=== PATIENT | male | born 1995 | race African-American/Black ===

== ENCOUNTER 2017-02-24 11:59 | Emergency (ER) | payer MEDICAID ==
[~2017-02-24] VITALS: Ht 172.7 cm; Wt 75.0 kg
[2017-02-24] MEDS ORDERED: IBUPROFEN 600MG TABLET PO ONE (13:15)
[2017-02-24 13:30] VITALS: BP 131/80
== END 2017-02-24 13:36 | disposition home or self-care (01) ==
LOC: ER 12:23
DX: S39.012A Strain of muscle, fascia and tendon of lower back, initial encounter (principal); V49.88XA Car occupant (driver) (passenger) injured in other specified transport accidents, initial encounter; Y93.89 Activity, other specified; Y92.89 Other specified places as the place of occurrence of the external cause; Y99.8 Other external cause status
CPT/HCPCS: 99283